=== PATIENT | male | born 1980 | race African-American/Black ===

== ENCOUNTER 2019-03-29 01:29 | Emergency (ER) | payer SELFPAY | END 2019-03-29 01:55 | disposition left against medical advice (07) | LOC: MADERS 01:29 | DX: R07.9 Chest pain, unspecified (principal); F22 Delusional disorders; F31.9 Bipolar disorder, unspecified; F17.210 Nicotine dependence, cigarettes, uncomplicated | CPT/HCPCS: 93005; 94760 ==

== ENCOUNTER 2019-11-05 17:04 | Emergency (ER) | payer SELFPAY | END 2019-11-05 17:38 | disposition home or self-care (01) | LOC: MADERS 17:04 | DX: S13.4XXA Sprain of ligaments of cervical spine, initial encounter (principal); L03.116 Cellulitis of left lower limb; I10 Essential (primary) hypertension; F31.9 Bipolar disorder, unspecified; F17.210 Nicotine dependence, cigarettes, uncomplicated; X58.XXXA Exposure to other specified factors, initial encounter | CPT/HCPCS: 99283 ==

== ENCOUNTER 2020-11-09 10:55 | Emergency (ER) | payer OTHER, SELFPAY ==
[2020-11-09] MEDS ORDERED: Lidocaine 1% w/Epinephrine 1:100K 20 ML VIAL ONE (11:09)
[2020-11-09] MEDS ORDERED: Morphine 2 MG/ML VIAL ONE (11:19)
[2020-11-09] MEDS ORDERED: Morphine 4 MG/ML VIAL ONE (11:20)
[2020-11-09] MEDS ORDERED: Ketorolac Tromethamine 60 MG/2 ML VIAL ONE (11:20)
[2020-11-09] MEDS ORDERED: Clindamycin 150 MG CAP ONE (11:30)
[2020-11-09] MEDS ORDERED: HYDROcodone/Acetaminophen 5/325 mg Tablet ONE (11:51)
== END 2020-11-09 12:00 | disposition home or self-care (01) ==
LOC: MADERS 10:55
DX: L02.31 Cutaneous abscess of buttock (principal); I10 Essential (primary) hypertension; F17.210 Nicotine dependence, cigarettes, uncomplicated
CPT/HCPCS: 10080; 96372; J1885; J2270